=== PATIENT | female | born 1995 | race African-American/Black ===

== ENCOUNTER 2017-01-26 09:21 | Emergency (ER) | payer MEDICAID ==
[~2017-01-26] VITALS: Ht 167.6 cm; Wt 106.0 kg
[2017-01-26] MEDS ORDERED: IBUPROFEN 600MG TABLET PO ONE (11:30)
[2017-01-26 11:42] VITALS: BP 125/78
== END 2017-01-26 11:43 | disposition home or self-care (01) ==
LOC: ER 09:33
DX: M54.30 Sciatica, unspecified side (principal); F12.10 Cannabis abuse, uncomplicated
CPT/HCPCS: 81025; 99283; Z7610